=== PATIENT | female | born 1995 | race Caucasian/White ===

== ENCOUNTER 2018-04-23 09:05 | Emergency (ER) | END 2018-04-23 11:07 | disposition home or self-care (01) ==

== ENCOUNTER → 2019-02-19 | Emergency (ER) | payer OTHER ==
[~2019-02-19] VITALS: Ht 170.2 cm; Wt 111.9 kg
[~2019-02-19] MED LIST: BENZ-6 PO; IBUP-1542 PO; NAPR-985 PO; ONDA4TAB14 PO
[2019-02-19 19:35] VITALS: Ht 170.2 cm; Wt 111.9 kg
--- NOTE | 2019-02-19 22:12 | ERD ---
ER Documentation Chief Complaint Chief Complaint headache x 5 days HPI This is a 23-year-old female patient who presented to the emergency room with complaint of headache x5 days. Stated pain is intermittent, improves with Advil, recurs after Advil. Right temoral to right neck, sharp pain. States pain is minimal at time of exam as she has taken Advil officer captain. Denies visual disturbance, no nausea, no vomiting, mild photo and phono phobia. Patient states she has been studying a lot for an exam and has not had a vision exam in some time. No other symptoms such as weakness, slurred speech, numbness or tingling, no dizziness. No chronic medical problems. ROS All systems reviewed and are negative except as per history of present illness. Medications Home Meds Active Scripts Ibuprofen* (Motrin*) 600 Mg Tab, 600 MG PO Q6 for HEADACHE for 10 Days, #30 TAB Prov:JULIANN BOLAND NP 02/19/19 Ondansetron (Ondansetron Odt) 4 Mg Tab.rapdis, 4 MG PO Q6H PRN for NAUSEA AND/OR VOMITING for 10 Days, #10 TAB Prov:JULIANN BOLAND NP 02/19/19 Naproxen* (Naprosyn*) 500 Mg Tablet, 500 MG PO BID PRN for PAIN AND/OR INFLAM MATION, #30 TAB Prov:SHARRON KEE PA-C 04/23/18 Benzonatate* (Tessalon Perle*) 100 Mg Capsule, 100 MG PO Q8H PRN for COUGH, #30 CAP Prov:SHARRON KEE PA-C 04/23/18 Allergies Allergies: Coded Allergies: No Known Allergy (Unverified , 04/23/18) PMhx/Soc Medical and Surgical Hx: pt denies Medical Hx, pt denies Surgical Hx History of Surgery: No Anesthesia Reaction: No Hx Neurological Disorder: No Hx Respiratory Disorders: No Hx Cardiac Disorders: No Hx Psychiatric Problems: No Hx Miscellaneous Medical Probl: Yes (POLYCYSTIC OVARIAN SYNDROME, PREDIABETES) Hx Alcohol Use: No Hx Substance Use: No Hx Tobacco Use: No Smoking Status: Never smoker FmHx Family History: diabetes Physical Exam Vitals Vital Signs Date Temp Pulse Resp B/P (MAP) Pulse Ox O2 O2 Flow FiO2 Time Delivery Rate 02/19/19 94 18 134/81 99 Room Air 22:32 (98) 02/19/19 99.2 122 20 159/70 100 19:35 (99) Physical Exam Const: No acute distress Head: No bruising, no swelling, no hematoma, no crepitus Eyes: Normal Conjunctiva. PERRL, EOMI, no nystagmus ENT: Normal External Ears, Nose and Mouth. Tm clear BL. Pharynx pink, moist, no lesions, exudate, petechiae. Neck: Full range of motion. No meningismus. No cervical spinal tenderness. No lymphadenopathy Resp: Clear to auscultation bilaterally, no rales, rhonchi. Chest rise equal bilaterally. Cardio: Regular rate and rhythm, no murmurs Abd: Soft, non tender, non distended. Normal bowel sounds. No bruising. Skin: No petechiae or rashes, no abrasions, no hematomas. Back: No midline or flank tenderness, no point tenderness to spine, FROM Ext: No cyanosis, or edema, no deformities Neur: Awake and alert, CN II-XII intact, steady gait, clear speech, no pronator drift, equal smile, BL heart coordinator 5/5, sensation intact BL, negative Romberg, negative [id number] test. Psych: Normal Mood and Affect Results 24 hrs Laboratory Tests Test 02/19/19 21:47 POC Beta HCG, Qualitative NEGATIVE Procedures/MDM PROCEDURES/MDM DIAGNOSTIC IMAGING: Not indicated LAB INTERPRETATION: cg: neg -Medications: Declined. MDM: This is a 23-year-old female patient who presents emergency room with complaint of right-sided headache that has nearly resolved by time of examination. Long discussion had with patient regarding causes of headache including dehydration, overuse of caffeine, stress, visual strain. Patient is without neurological deficit, no radiological diagnostics indicated at this time. The patient was well-appearing with VSS and without neurological deficits at time of reevaluation and discharge. Clinical and diagnostic exam not suggestive of infection, intracranial process, SAH, SDH, neoplasm, meningitis, encephalitis, aneurysm, thrombus, temporal arteritis, sinusitis. The patient has been provided with instructions on self-care including use of analgesia, reducing triggers, and need for close follow-up with primary care physician within 1-2 days for reevaluation. The patient has been instructed to return immediately for worsening symptoms, change in pattern of current symptoms, or other acute problems. DISPOSITION and PLAN: RX: Ibuprofen, Zofran The patient has been discharge home to follow-up with community physician. Departure Diagnosis: Primary Impression: Headache Headache type: unspecified Headache chronicity pattern: episodic headache Intractability: not intractable Qualified Codes: R51 - Headache Condition: Stable Patient Instructions: Self-Care for Headaches Referrals: [facility] YOU HAVE RECEIVED A MEDICAL SCREENING EXAM AND THE RESULTS INDICATE THAT YOU DO NOT HAVE A CONDITION THAT REQUIRES URGENT TREATMENT IN THE EMERGENCY DEPARTMENT. FURTHER EVALUATION AND TREATMENT OF YOUR CONDITION CAN WAIT UNTIL YOU ARE SEEN IN YOUR DOCTORS OFFICE WITHIN THE NEXT 1-2 DAYS. IT IS YOUR RESPONSIBILITY TO MAKE AN APPOINTMENT FOR FOLOW-UP CARE. IF YOU HAVE A PRIMARY DOCTOR --you should call your primary doctor and schedule an appointment IF YOU DO NOT HAVE A PRIMARY DOCTOR YOU CAN CALL OUR PHYSICIAN REFERRAL HOTLINE AT IF YOU CAN NOT AFFORD TO SEE A PHYSICIAN YOU CAN CHOSE FROM THE FOLLOWING [facility][1] [address] [facility] [address] [facility] [facility] [address] [facility] [address] [facility] [address] [facility] [facility] [address] [facility] [facility] YOU HAVE RECEIVED A MEDICAL SCREENING EXAM AND THE RESULTS INDICATE THAT YOU DO NOT HAVE A CONDITION THAT REQUIRES URGENT TREATMENT IN THE EMERGENCY DEPARTMENT. FURTHER EVALUATION AND TREATMENT OF YOUR CONDITION CAN WAIT UNTIL YOU ARE SEEN IN YOUR DOCTORS OFFICE WITHIN THE NEXT 1-2 DAYS. IT IS YOUR RESPONSIBILITY TO MAKE AN APPOINTMENT FOR FOLOW-UP CARE. IF YOU HAVE A PRIMARY DOCTOR --you should call your primary doctor and schedule and appointment IF YOU DO NOT HAVE A PRIMARY DOCTOR YOU CAN CALL OUR PHYSICIAN REFERRAL HOTLINE AT . IF YOU CAN NOT AFFORD TO SEE A PHYSICIAN YOU CAN CHOSE FROM THE FOLLOWING [facility] INSTITUTIONS: [facility] [address] [place] [address] [facility] [address] [place] [address] [facility] + [facility] [address] [place] [address] Additional Instructions: Thank you very much for allowing us to participate in your care. Your health and safety is our top priority at [facility]. Call your primary care doctor TOMORROW for an appointment during the next 2-4 days and bring all the information and medications prescribed. Have prescriptions filled and follow precisely the directions on the label. If the symptoms get worse and your provider is unavailable, return to the Emergency Department immediately. STAY WELL-HYDRATED USE ZOFRAN NEEDED FOR NAUSEA USE IBUPROFEN FOR HEADACHE YOU MAY ALSO USE YOUR ACETAMINOPHEN COMBINATION MEDICATION NEEDED FOR HEADACHE HAVE YOUR VISION CHECKED RETURN TO THE EMERGENCY ROOM FOR WORSENING OR CHANGING OF YOUR SYMPTOMS JULIANN BOLAND NP Feb 19, 2019 22:12
[2019-02-19 22:32] VITALS: BP 134/81; PULSE 94; RESP 18
== END | disposition home or self-care (01) ==
LOC: FTE 19:32
DX: R51 Headache (principal)
CPT/HCPCS: 81025; 99283